=== PATIENT | male | born 1950 | race Two or more races ===

== ENCOUNTER 2021-08-22 11:01 | Outpatient (CLI) | payer OTHER | END 2021-08-22 11:18 | disposition home or self-care (01) | LOC: TOM 11:01 | PROVIDERS: ATTEND Neurological Surgery | DX: M54.50 Low back pain, unspecified (principal); M47.897 Other spondylosis, lumbosacral region; M48.061 Spinal stenosis, lumbar region without neurogenic claudication ==

== ENCOUNTER 2021-08-24 10:10 | Outpatient (CLI) | payer OTHER | END 2021-08-24 10:16 | disposition home or self-care (01) | LOC: MRI 10:10 | PROVIDERS: ATTEND Neurological Surgery | DX: M54.50 Low back pain, unspecified (principal); M48.061 Spinal stenosis, lumbar region without neurogenic claudication | CPT/HCPCS: 72148 ==

== ENCOUNTER 2022-09-13 12:45 | Outpatient (CLI) | payer OTHER | END 2022-09-13 12:55 | disposition home or self-care (01) | LOC: MAMO-SONO 12:45 | PROVIDERS: ATTEND Neurological Surgery | DX: M54.59 Other low back pain (principal); M48.061 Spinal stenosis, lumbar region without neurogenic claudication | CPT/HCPCS: 72148 ==